=== PATIENT | female | born 1945 | race Caucasian/White ===

== ENCOUNTER 2018-01-09 14:35 | Observation (INO) | payer OTHER ==
[~2018-01-09] VITALS: Ht 157.5 cm; Wt 61.9 kg
[~2018-01-09 14:35] MED LIST: ATORVASTATIN CA10 MG PO; AZITHROMYCIN250 M1 PO; OXYCODONE5 M1 PO; PREDNICOT10 MG PO; PREDNISONE10 M2 PO; TESSALON PERLE100 MG PO; ZITHROMAX Z-PA250 M1 PO
[2018-01-09 15:19] LABS: ABSOLUTE BASOPHIL COUNT 0 /CUMM (0.0-0.2); ABSOLUTE EOSINOPHIL COUNT 0.2 /CUMM (0.0-0.7); ABSOLUTE GRANULOCYTE CT 9.3 /CUMM (1.4-6.5); ABSOLUTE LYMPH COUNT 1.3 /CUMM (1.2-3.4); ABSOLUTE MONOCYTE COUNT 0.8 /CUMM (0.10-0.60); BASOPHIL % 0.2 % (0.0-2.0); EOSINOPHIL % 1.7 % (0-5); GRANULOCYTE % 79.5 % (42.2-75.2); HEMATOCRIT 40.2 % (37-47); MEAN CORPUSCULAR HGB 29.9 PG (27.0-31.0); MEAN CORPUSCULAR HGB CONC 33.6 G/DL (33.0-37.0); MEAN PLATELET VOLUME 8.6 FL (7.4-10.4); PLATELET COUNT 273 /CUMM (130-400); RBC DISTRIBUTION WIDTH 14.2 % (11.5-14.5); RED BLOOD CELL CT 4.51 /CUMM (4.20-5.40); WHITE BLOOD CELL COUNT 11.7 /CUMM (4.8-10.8)
--- NOTE | 2018-01-09 15:41 | RADIOLOGY REPORT ---
EXAMINATION: XR CHEST CLINICAL INFORMATION: Cough. Dyspnea. Rule out pneumonia. COMPARISON: 09/27/2016 TECHNIQUE: PA and lateral views of the chest were obtained. FINDINGS: No consolidation, pneumothorax, or pleural effusion. Minimal atelectasis is present at the left lung base. Cardiac and mediastinal contours are normal. Pulmonary vasculature is unremarkable. Bones are osteopenic. There is a superior endplate compression fracture in the lower thoracic spine, likely at the level of T8. This is unchanged from prior. No new fractures. IMPRESSION: No acute pulmonary findings.
--- NOTE | 2018-01-09 16:33 | ED GENERAL ADULT ---
History of Present Illness General Chief Complaint: Upper Respiratory Sx/Fever Stated Complaint: UPPER RESP INFECTION Source: patient Exam Limitations: no limitations Vital Signs & Intake/Output Vital Signs & Intake/Output Vital Signs Date Time Temp Pulse Resp B/P B/P Pulse O2 O2 Flow FiO2 Mean Ox Delivery Rate 01/10 0529 98.1 92 20 100/60 92 Room Air 01/10 0035 97.1 93 20 100/64 93 Room Air 01/10 0015 97 Nasal 2.0L Cannula 01/09 2334 98.4 94 18 103/58 94 Nasal 2.0L Cannula 01/09 2156 98.9 100 17 113/72 93 Nasal 2.0L Cannula 01/09 2102 110 88 Room Air 01/09 2028 125 18 168/72 95 Nasal Cannula 01/09 1928 94 01/09 1856 99.3 119 18 141/81 96 Room Air 01/09 1735 100.6 01/09 1700 100.9 01/09 1641 98 01/09 1440 99.1 124 22 139/90 96 Room Air ED Intake and Output 01/10 0000 01/09 1200 Intake Total Output Total Balance Patient 137 lb Weight Weight Reported by Patient Measurement Method Allergies Coded Allergies: aspirin (Severe, ANGIODEMA 12/02/15) naproxen (From ALEVE) (Severe, ANGIODEMA 12/02/15) Triage Note: PT C/O URI STARTING YESTERDAY WITH PRODUCTIVE COUGH WITH YELLOW SPUTUM, DIFFICULTY BREATHING, DENIES CP Triage Nurses Notes Reviewed? yes Onset: Gradual Duration: day(s): Timing: constant HPI: 72-year-old female with a history of vertigo and hyperlipidemia presenting with cough productive of yellow sputum, rhinorrhea, nasal congestion, and shortness of breath since yesterday. States that she thinks she has bronchitis. Denies any fevers or chest pain. States that her has recently been sick with similar symptoms. Patient is not a smoker. Denies travel. Patient also endorsing foul smell to her urine and that the color has been dark yellow, but denies dysuria, hematuria, urinary frequency/urgency. No abdominal pain, nausea , vomiting, diarrhea. (Tosin BLANCO,Nguyen) Reconcile Medications Atorvastatin Calcium 10 MG TABLET 1 TAB PO DAILY CHOLESTEROL (Reported) Montelukast Sodium 10 MG TABLET 1 TAB PO PRN ALLERGIES (Reported) (Nav MIKE,Codey Rosas) Past History Travel History Traveled to [place] past 21 day No Medical History Any Pertinent Medical History? see below for history Neurological: vertigo Cardiovascular: hyperlipidemia Respiratory: bronchitis Surgical History Surgical History: non-contributory Psychosocial History What is your primary language Bahamian Tobacco Use: Never used ETOH Use: denies use Illicit Drug Use: denies illicit drug use Family History Hx Contributory? No (Nguyen Tavera) Review of Systems Review of Systems Constitutional: Reports: no symptoms. EENTM: Reports: see HPI. Respiratory: Reports: see HPI. Cardiovascular: Reports: no symptoms. GI: Reports: no symptoms. Genitourinary: Reports: see HPI. Musculoskeletal: Reports: no symptoms. Skin: Reports: no symptoms. Neurological/Psychological: Reports: no symptoms. Hematologic/Endocrine: Reports: no symptoms. Immunologic/Allergic: Reports: no symptoms. All Other Systems: Reviewed and Negative (Nguyen Tavera) Physical Exam Physical Exam General Appearance: well developed/nourished, no apparent distress, alert, awake , comfortable Comments: Gen.: Well-nourished, well-developed, no acute distress. Head: Normocephalic, atraumatic. Eyes: Normal inspection bilaterally Ears: Normal inspection bilaterally, TMs with good light reflex bilaterally Throat: No erythema or exudates Nose: Normal inspection, mild nasal congestion Neck: Normal inspection, no cervical lymphadenopathy Lungs: Patient has diffuse end expiratory wheezing, has no tachypnea or increased work of breathing Heart: regular rhythm, tachycardic Abdomen: soft and non-tender Extremities: Normal inspection Back: No CVA tenderness Neurologic: alert and oriented x3, steady gait Skin: warm and dry Psychiatric: Normal mood and affect, no apparent delusions or hallucinations, behavior appropriate Core Measures ACS in differential dx? No CVA/TIA Diagnosis: No Sepsis Present: No Sepsis Focused Exam Completed? No (Nguyen Tavera) Progress Differential Diagnoses I considered the following diagnoses in my evaluation of the patient: [URI versus bronchitis versus pneumonia, low concern for ACS. UTI versus pyelonephritis versus dehydration.] Plan of Care: Orders Procedure Date/time Status Regular Diet 01/10 B Active CBC WITHOUT DIFFERENTIAL 01/10 600 Active BASIC ELECTROLYTES PLUS BUN&CR 01/10 600 Active Vital Signs 01/11 48 Active Teach/Educate 01/11 48 Active Pain Treatment and Response 01/11 48 Active Nutritional Intake, Monitor 01/11 48 Active Isolation 01/11 48 Active Intake & Output 01/11 48 Active Patient Care Conference 01/11 48 Active Activity/Ambulation 01/108 Active LOWER RESPIRATORY CULTURE 01/10 2236 Active TRC EVALUATION (GEN) 01/09 2234 Active Pathway - chart 01/09 2234 Active House Staff 01/09 223 Active Patient Data 01/09 2234 Active Code Status 01/09 2234 Active Patient Data 01/[address] in observation 01/09 2130 Active ED Holding Orders 01/10 2128 Active Vital Signs 01/10 2128 Active Code Status 01/10 2128 Complete ARTERIAL BLOOD GAS (GEN) 01/09 2111 Active Add-on Test (ER Only) 01/09 2109 Active Add-on Test (ER Only) 01/10 2108 Active Add-on Test (ER Only) 01/09 203 Active Intake & Output 01/09 1639 Active CULTURE,URINE 01/09 1625 Active URINALYSIS 01/09 1625 Complete Add-on Test (ER Only) 01/09 1528 Active TSH REFLEX 01/09 1454 Complete PHOSPHORUS 01/09 1454 Complete MAGNESIUM 01/09 1454 Complete LACTIC ACID 01/09 1454 Complete TROPONIN LEVEL 01/09 1441 Complete COMPREHENSIVE METABOLIC PANEL 01/09 1441 Complete CBC WITHOUT DIFFERENTIAL 01/09 1441 Complete EKG 01/09 1441 Active VTE Mechanical Prophylaxis 01/09 UNK Active Vital Signs 01/09 UNK Complete Activity/Ambulation 01/09 UNK Active Current Medications Sig/Martina Start time Last Medication Dose Stop Time Status Admin Atorvastatin Calcium 10 MG DAILY 01/10 900 AC (Lipitor) Azithromycin 250 MG DAILY 01/10 900 AC (Zithromax) Methylprednisolone 40 MG Q12 01/10 900 AC (Solumedrol) Montelukast Sodium 10 MG DAILY 01/10 900 AC (Singulair) Heparin Sodium 5,000 UNIT Q8 01/10 06 AC (Porcine) Benzonatate 100 MG TID PRN 01/105 AC (Tessalon Capsule) Acetaminophen 650 MG Q6P PRN 01/095 AC (Tylenol) Benzocaine/Menthol 1 RAFIA Q2P PRN 01/09 224 AC (Chloraseptic Lozenges) Laboratory Tests 01/09/18 2220: pH 7.41, pCO2 39, pO2 68 L, HCO3 24, ABG O2 Sat (Measured) 93.0 L, Carboxyhemoglobin 0 L, O2 Concentration % 2L, O2 Delivery Method NC, Phlebotomy Draw Site RIGHT RADIAL 01/09/18 1640: Urine Color YEL, Urine Clarity CLEAR, Urine pH 8.0, Ur Specific [place] 1.020, Urine Protein NEG, Urine Ketones NEG, Urine Nitrite NEG, Urine Bilirubin NEG, Urine Urobilinogen 0.2, Ur Leukocyte Esterase NEG, Ur Microscopic EXAM NOT REQUIRED, Urine Hemoglobin NEG, Urine Glucose NEG 01/09/18 1454: Anion Gap 7, Estimated GFR > 60, BUN/Creatinine Ratio 16.7, Glucose 115 H, Lactic Acid 1.2, Calcium 9.2, Phosphorus 2.8, Magnesium 1.7, Total Bilirubin 0.3 , AST 25, ALT 39, Alkaline Phosphatase 128 H, Troponin I < 0.01, Total Protein 6.6, Albumin 3.9, Globulin 2.7, Albumin/Globulin Ratio 1.4, TSH &T3 &Free T4 Intrp 0.998, CBC w Diff NO MAN DIFF REQ, RBC 4.51, MCV 89.0, MCH 29.9, MCHC 33.6 , RDW 14.2, MPV 8.6, Gran % 79.5 H, Lymphocytes % 11.5 L, Monocytes % 7.1, Eosinophils % 1.7, Basophils % 0.2, Absolute Granulocytes 9.3 H, Absolute Lymphocytes 1.3, Absolute Monocytes 0.8 H, Absolute Eosinophils 0.2, Absolute Basophils 0 Microbiology 01/10 2236 LOWER RESP: Respiratory Culture - COLB 01/10 2236 LOWER RESP: Gram Stain - COLB 01/09 1640 URINE ROUT: Urine Culture - RECD EKG showed sinus tach, troponin negative Labs unremarkable Chest x-ray unremarkable Patient was given nebulizer treatments and IV steroids for her shortness of breath. Patient likely with bronchitis, but had persistent tachycardia to the 120s during her emergency department visit. She was initially febrile, but fever was controlled with Tylenol. Given IV fluid bolus to assess for tachycardia secondary to dehydration. TSH was obtained and is within normal limits. CTA of the chest was obtained to evaluate for PE or pneumonia that was missed on chest x-ray. CT of the chest was unremarkable. Patient still with persistent tachycardia to the one teens/120s. She was initially satting in the mid 90s on room air, but then began satting high 80s on room air requiring 2 L of oxygen via nasal cannula. Her O2 saturation improved to the mid 90s with supplemental oxygen. Discussed with the ED attending and patient will be admitted to telemetry for bronchitis, hypoxia, and tachycardia. Although patient's bronchitis is likely of viral etiology she was covered with ceftriaxone and azithromycin for bacterial etiology given her age. Initial ED EKG: rhythm (sinus tach) (Nguyen Tavera) Departure Departure Disposition: STILL A PATIENT Condition: Stable Clinical Impression Primary Impression: Bronchitis Secondary Impressions: Acute hypoxemic respiratory failure, Tachycardia Referrals: Aldo Kruse MD (PCP/Family) Departure Forms: Customer Survey General Discharge Information Observation Note Spoke With: Aldo Kruse MD Physician Advisor Notified: SABAS MIKE,QUIANA Rosas (case management) Place Patient In: Non-ED OBS Care Area Rationale for Observation: My rational for observation is as follows [hemodynamic monitoring, telemetry monitoring, IV antibiotics, IV fluids, antipyretics, serial EKGs and troponins, supplemental oxygen]. (Nguyen Tavera) PA/BOTTLE CASER Co-Sign Statement Statement: ED Attending supervision documentation- [x] I saw and evaluated the patient. I have also reviewed all the pertinent lab results and diagnostic results. I agree with the findings and the plan of care as documented in the PA's/BOTTLE CASER's documentation. [x] I have reviewed the ED Record and agree with the PA's/BOTTLE CASER's documentation. [] Additions or exceptions (if any) to the PAs/BOTTLE CASER's note and plan are summarized below: [PT TO BE ADMITTED FOR IV ABX, NEB TREATMENTS AND PULM CONSULTATION] (Nav MIKE,Codey Rosas) PA/BOTTLE CASER Co-Sign Statement Statement: ED Attending supervision documentation- [] I saw and evaluated the patient. I have also reviewed all the pertinent lab results and diagnostic results. I agree with the findings and the plan of care as documented in the PA's/BOTTLE CASER's documentation. [] I have reviewed the ED Record and agree with the PA's/BOTTLE CASER's documentation. [] Additions or exceptions (if any) to the PAs/BOTTLE CASER's note and plan are summarized below: [] (Misty MIKE, Grace) Critical Care Note Critical Care Note Critical Care Time: non-applicable (Tosin BLANCO,Nguyen)
--- NOTE | 2018-01-09 20:37 | CT SCAN REPORT ---
EXAMINATION: CT ANGIOGRAM CHEST, PE STUDY CLINICAL INFORMATION: Tachycardia. Shortness of breath. COMPARISON: CT chest 09/13/2011. Chest x-ray 01/09/2018 TECHNIQUE: A noncontrast localizer was performed, followed by the administration of 95 mL Optiray [address] of the chest was then performed. Coronal and sagittal reformatted and 3-D technique MIP images of the chest were completed at the CT scanner and reviewed on the PACS workstation. No adverse effects were reported. DLP: 370.65 mGy-cm. FINDINGS: VASCULAR: The main pulmonary artery, secondary and tertiary branches of the pulmonary artery are normally opacified with no evidence of pulmonary embolism. The aorta and great vessels are unremarkable. MEDIASTINUM: No mediastinal mass. No significant lymphadenopathy. There is no pericardial effusion. There is a small hiatal hernia. LUNGS: The lungs are clear. No nodule or infiltrate. Central bronchial airways open. FLUID: There is no pericardial effusion. There is no pleural effusion. AXILLA: No significant lymphadenopathy. UPPER ABDOMEN: There is low attenuation of liver parenchyma due to fatty change. The adrenal glands are normal. The visualized portions of the spleen, pancreas and kidneys are normal. SKELETAL: There is degenerative spondylosis of spine. There is central depression of the T8 vertebrae. There is about 40% loss of height of the vertebrae. IMPRESSION: No acute abnormality. No evidence of pulmonary embolism.
[2018-01-09] MEDS ORDERED: ATORVASTATIN CA10 M1 PO (21:07)
[2018-01-09] MEDS ORDERED: MONTELUKAST SOD10 M1 PO (21:08)
--- NOTE | 2018-01-09 22:16 | History & Physical ---
See Addendum Haylee Guillaume 01/09/18 9076: General Information and HPI MD Statement: I have seen and personally examined ESTEPHANIA LUDWIG and documented this H&P. The patient is a 72 year old F who presented with a patient stated chief complaint of []. Source of Information: patient Exam Limitations: no limitations History of Present Illness: 72 for year old female with PMH Vertigo, syncope, HLD, arrhythmia (unknown what kind) presenting with 2 day history of productive cough with yellow sputum, rhinnorhea, nasal congestion, and progressive SOB. She reports associated chills/sweats, dizziness, dark urine and foul odor to urine, and sore throat. She maintains that her appetite has remained intact. She states her has recently had similar symptoms. Denies chest pain, abdominal pain. Allergies/Medications Allergies: Coded Allergies: aspirin (Severe, ANGIODEMA 12/02/15) naproxen (From ALEVE) (Severe, ANGIODEMA 12/02/15) Home Med list Atorvastatin Calcium 10 MG TABLET 1 TAB PO DAILY CHOLESTEROL (Reported) Montelukast Sodium 10 MG TABLET 1 TAB PO PRN ALLERGIES (Reported) Past History Travel History Traveled to [place] past 21 day No Medical History Neurological: vertigo Cardiovascular: hyperlipidemia Respiratory: bronchitis Surgical History Surgical History: non-contributory Past Family/Social History Psychosocial History Smoking Status: Never Smoked ETOH Use: denies use Illicit Drug Use: denies illicit drug use 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 Denies: fever. EENTM: Reports: nasal congestion, throat pain. Cardiovascular: Reports: no symptoms. Respiratory: Reports: cough, short of breath, sputum production. GI: Reports: nausea. Musculoskeletal: Reports: no symptoms. Skin: Reports: no symptoms. Exam & Diagnostic Data Last 24 Hrs of Vital Signs/I&O Vital Signs Date Time Temp Pulse Resp B/P B/P Pulse O2 O2 Flow FiO2 Mean Ox Delivery Rate 01/09 2334 98.4 94 18 103/58 94 Nasal 2.0L Cannula 01/096 98.9 100 17 113/72 93 Nasal 2.0L Cannula 01/09 2102 110 88 Room Air 01/10 2028 125 18 168/72 95 Nasal Cannula 01/09 1928 94 01/09 1856 99.3 119 18 141/81 96 Room Air 01/09 1735 100.6 01/09 1700 100.9 01/09 1641 98 01/09 1440 99.1 124 22 139/90 96 Room Air Intake & Output 01/10 0800 01/10 0000 01/09 1600 Intake Total Output Total Balance Patient 137 lb Weight Weight Reported by Patient Measurement Method Physical Exam General Appearance Alert, Oriented X3, Cooperative, No Acute Distress Skin No Rashes Skin Temp/Moisture Exam: Warm/Dry HEENT Atraumatic, PERRLA, Mucous Membr. moist/pink, mild erythema posterior pharynx non tender frontal and maxillary sinuses Neck Supple Cardiovascular Normal S1, Normal S2, tachycardic Lungs Clear to Auscultation Abdomen Normal Bowel Sounds, Soft, No Tenderness Extremities No Edema, Normal Pulses Assessment/Plan Assessment: 72 for year old female with PMH Vertigo, syncope, HLD, arrhythmia (unknown what kind) presenting with 2 day history of productive cough with yellow sputum, rhinnorhea, nasal congestion, and progressive SOB. She reports associated chills/sweats, dizziness, dark urine and foul odor to urine, and sore throat. She maintains that her appetite has remained intact. She states her has recently had similar symptoms. Patient will be brought in for observation on the general medicine service for further care of the following: Problem List: 1. URI 2. Acute Bronchitis Admission Data: VS T100.9 P124 RR22 BP139/90 Sat 96%RA Labs: WBC 11.7 H/H 13.5/40.2 plt 273 Na 138 K3.9 BUN/Cr 10/0.6 Glu 115 Alk Phos 128 UA: neg nitrites; leukocyte esterase negative; bacteria none UCx pending CXR no acute findings CTA: negative for PE EKG: Sinus Tachycardia #URI-likely viral; patient's with similar sx -supportive care; symptom relief (throat lozenges) #Acute Bronchitis -Cough suppressant: Tessalon perles -Sputum cultures -Methylprednisolone 40mg Q12hr -Supplemental oxygen; taper to baseline room air -TRC/nebs -Azithromycin 5 day course DVT prophylaxis: heparin 5000units subcu/ALPS/ambulation Code Status: full code As Ranked By This Provider Problem List: 1. Bronchitis Core Measures/Misc (02/04) Acute Coronary Syndrome ACS Diagnosis: No Congestive Heart Failure Congestive Heart Failure Diagnosis No Cerebrovascular Accident CVA/TIA Diagnosis: No VTE (View Protocol) VTE Risk Factors Acute Medical Illness No Mechanical VTE Prophylaxis d/t N/A MechProphylax Ordered No VTE Pharm Prophylaxis d/t NA PharmProphylax ordered Sepsis (View protocol) Sepsis Present: No If YES complete Sepsis Event Note If YES complete Sepsis Event Note Bryant Valerio 01/09/18 5552: Core Measures/Misc (02/04) Sepsis (View protocol) If YES complete Sepsis Event Note If YES complete Sepsis Event Note Resident Review Statement Resident Statement: examined this patient, discussed with rn internal medicine, agreed with rn internal medicine, discussed with family, reviewed EMR data (avail), discussed with nursing , discussed with case mgmt, reviewed images, amended to note Other Findings: This is a 72-year-old female with past medical history significant for hyperlipidemia, vertigo presented to the hospital for evaluation of shortness of breath since yesterday. Patient reports sudden onset of shortness of breath associated with runny nose and nasal congestion. She also reports sputum production and cough. Reports subjective fever and chills. She denies any travel history. She reports exposure to sick contacts at home who has upper respiratory tract infection. She never smoked in her life. She has no COPD or asthma. On review of systems she reports yelow colored urine. Denied any chest pain, palpitations, nausea, vomiting, abdominal pain, change in bladder or bowel habits. Denied smoking, alcohol abuse, illicit drug abuse. Vitals T-max 100.9, heart rate 110, respiratory 22, blood pressure 139/90, saturating at 96 on room air Labs WBC 11.7, hemoglobin 13, hematocrit 40, Platelets 273 BEP normal limit Urine analysis within normal limits EKG showed sinus tach 115, no acute ST-T wave changes CTA was done, negative for pulmonary embolism Chest x-ray no acute cardiopulmonary findings 1. Acute hypoxic respiratory failure secondary to bronchitis Patient presented with worsening shortness of breath with minimal exertion associated with productive cough, runny nose, nasal congestion. Reports fever, chills. She has leukocytosis 11.7 and T-max 100.9. Chest x-ray no acute cardiopulmonary findings, no pneumonia was found. * Admitted to [facility] * Acute hypoxic respiratory failure most likely secondary to bronchitis/sick contact exposure * Monitor vitals every shift * Maintain oxygen saturation greater than 90% * Provide oxygen supplementation * IV methylprednisolone 40 every 8 hours * Azithromycin 250 daily for 5 days * incentive spirometry * TRC * DUO nebs SIRS criteria She has T-max 100.9 with the tachycardia 110, leukocytosis 11.7. Urine looks clear. Chest x-ray showed no findings suggestive of pneumonia. No source of infection was found. Abdominal exam was benign * Follow-up sputum cultures * Follow-up urine cultures * Please trend WBC * Follow-up for fever Hyperlipidemia continue Lipitor 10 daily Full code Regular diet DVT prophylaxis subcu heparin Pain pathway ordered Discussed with Dr. Kruse over phone.. Aldo Kruse MD 01/10/18 1022: Core Measures/Misc (02/04) Sepsis (View protocol) If YES complete Sepsis Event Note If YES complete Sepsis Event Note
[2018-01-10 00:35] VITALS: BP 100/64
[2018-01-10 05:29] VITALS: BP 100/60
--- NOTE | 2018-01-10 06:47 | PN- Housestaff ---
Subjective Follow-up For: URI Acute Bronchitis Subjective: I saw the patient and examined her this morning, she was alert and oriented 3 lying back in her bed. She was in no acute distress and she feels better this morning comparing to the time she was admitted in ED. No major complaints reported by the patient or nurse. Review of Systems Constitutional: Reports: see HPI. Objective Last 24 Hrs of Vital Signs/I&O Vital Signs Date Time Temp Pulse Resp B/P B/P Pulse O2 O2 Flow FiO2 Mean Ox Delivery Rate 01/10 0529 98.1 92 20 100/60 92 Room Air 01/10 0035 97.1 93 20 100/64 93 Room Air 01/10 0015 97 Nasal 2.0L Cannula 01/09 2334 98.4 94 18 103/58 94 Nasal 2.0L Cannula 01/09 2156 98.9 100 17 113/72 93 Nasal 2.0L Cannula 01/09 2102 110 88 Room Air 01/09 2028 125 18 168/72 95 Nasal Cannula 01/09 1928 94 01/09 1856 99.3 119 18 141/81 96 Room Air 01/09 1735 100.6 01/09 1700 100.9 01/09 1641 98 01/09 1440 99.1 124 22 139/90 96 Room Air Intake & Output 01/10 1600 01/10 0800 01/10 0000 Intake Total 490 Output Total Balance 490 Intake, IV 10 Intake, Oral 480 Patient 137 lb Weight Physical Exam General Appearance: Alert, Oriented X3, Cooperative Skin: No Rashes Skin Temp/Moisture Exam: Warm/Dry HEENT: Atraumatic Vascular: Normal Pulses, Pulses Symmetrical Assessment/Plan Assessment: 72 for year old female with PMH Vertigo, syncope, HLD, arrhythmia (unknown what kind) presenting with 2 day history of productive cough with yellow sputum, rhinnorhea, nasal congestion, and progressive SOB. She reports associated chills/sweats, dizziness, dark urine and foul odor to urine, and sore throat. She maintains that her appetite has remained intact. She states her has recently had similar symptoms. URI: likely viral; patient's with similar symptoms. Plan: supportive care; symptom relief (throat lozenges), we will follow current treatments. Acute Bronchitis: We will continue the current treatments as per Dr. Kruse notes. Plan: Cough suppressant, Sputum cultures, Methylprednisolone 40mg Q12hr, Supplemental oxygen; taper to baseline room air, TRC/nebs, Azithromycin 5 day course, I will follow the current treatment. DVT prophylaxis: heparin 5000units subcu/ALPS/ambulation Code Status: full code Problem List: 1. Acute hypoxemic respiratory failure 2. Bronchitis Pain Ratin Pain Location: NA Pain Goal: Remain pain free Pain Plan: NA Tomorrow's Labs & Rationales: NA
[2018-01-10 10:04] LABS: ABSOLUTE BASOPHIL COUNT 0 /CUMM (0.0-0.2); ABSOLUTE EOSINOPHIL COUNT 0 /CUMM (0.0-0.7); ABSOLUTE GRANULOCYTE CT 10.8 /CUMM (1.4-6.5); ABSOLUTE LYMPH COUNT 0.7 /CUMM (1.2-3.4); ABSOLUTE MONOCYTE COUNT 0.3 /CUMM (0.10-0.60); BASOPHIL % 0 % (0.0-2.0); EOSINOPHIL % 0 % (0-5); HEMATOCRIT 39.4 % (37-47); MEAN CORPUSCULAR HGB 29.6 PG (27.0-31.0); MEAN CORPUSCULAR HGB CONC 33.1 G/DL (33.0-37.0); MEAN CORPUSCULAR VOLUME 89.3 FL (81.0-99.0); MEAN PLATELET VOLUME 8.8 FL (7.4-10.4); PLATELET COUNT 285 /CUMM (130-400); RBC DISTRIBUTION WIDTH 14.6 % (11.5-14.5); RED BLOOD CELL CT 4.41 /CUMM (4.20-5.40); WHITE BLOOD CELL COUNT 11.8 /CUMM (4.8-10.8)
--- NOTE | 2018-01-10 10:24 | PN- Att Addend ---
Attending Addendum Attending Brief Note 72-year-old female fairly active. Her had been sick with upper respiratory symptoms. She suddenly started having problems with cough yellow sputum wheezing and some shortness of breath and a little tachycardic. She comes to the emergency room. Originally no major response to routine treatment for those reasons she was kept for observation and was given IV steroids and oxygen and antibiotics. This morning patient feels better she still wheezing. Will continue observation during the day continued IV steroids TRC oxygen try to taper oxygen down. 24 TOTALS 01/10 0000 01/09 0000 Intake Total Output Total Balance Patient 137 lb Weight Weight Reported by Patient Measurement Method Current Medications Sig/Martina Start time Last Medication Dose Route Stop Time Status Admin Acetaminophen 650 MG Q6P PRN 01/09 224 AC PO Acetaminophen 0 .STK-MED ONE 01/09 1730 DC PO Acetaminophen 650 MG ONCE ONE 01/09 1715 DC 01/09 PO 01/09 171 1735 Albuterol Sulfate 3 ML ONCE ONE 01/09 1630 DC 01/09 INH 01/09 163 1641 Albuterol Sulfate 3 ML ONCE ONE 01/09 1630 DC 01/09 INH 01/09 1631 1927 Atorvastatin Calcium 10 MG DAILY 01/10 0900 AC 01/10 PO 0816 Azithromycin 250 MG DAILY 01/10 09 AC 01/10 PO 0817 Azithromycin 500 MG ONCE ONE 01/09 1915 DC 01/09 Sodium Chloride 250 ML IV 01/09 2014 192 Benzocaine/Menthol 1 RAFIA Q2P PRN 01/09 2245 AC PO Benzonatate 100 MG TID PRN 01/10 0045 AC PO Ceftriaxone Sodium 0 .STK-MED ONE 01/09 2121 DC .ROUTE Ceftriaxone Sodium 1,000 MG ONCE ONE 01/09 2115 DC 01/09 IV 01/09 Diphenhydramine HCl 50 MG ONCE ONE 01/09 2045 DC 01/09 IV 01/09 Heparin Sodium 5,000 UNIT Q8 01/10 06 AC (Porcine) SC Ipratropium [place] 2.5 ML ONCE ONE 01/09 1630 DC 01/09 INH 01/09 1631 1641 Methylprednisolone 40 MG Q12 01/10 0900 AC 01/10 IV 0817 Methylprednisolone 0 .STK-MED ONE 01/09 1921 DC .ROUTE Methylprednisolone 125 MG ONCE ONE 01/09 1915 DC 01/09 IV 01/09 191 1926 Montelukast Sodium 10 MG DAILY 01/10 0900 AC 01/10 PO 0816 Ondansetron HCl 4 MG ONCE ONE 01/09 2015 DC 01/09 IV 01/09 Sodium Chloride 500 ML BOLUS ONE 01/09 2045 DC 01/09 IV 01/10 2144 203 Sodium Chloride 500 ML BOLUS ONE 01/09 1730 DC 01/09 IV 01/09 1829 1735 Laboratory Tests 01/10/18 0911: Anion Gap 7, Estimated GFR > 60, BUN/Creatinine Ratio 25.0, CBC w Diff Pending, WBC Pending, RBC Pending, Hgb Pending, Hct Pending, MCV Pending, MCH Pending, MCHC Pending, RDW Pending, Plt Count Pending, MPV Pending 01/09/18 2220: pH 7.41, pCO2 39, pO2 68 L, HCO3 24, ABG O2 Sat (Measured) 93.0 L, Carboxyhemoglobin 0 L, O2 Concentration % 2L, O2 Delivery Method NC, Phlebotomy Draw Site RIGHT RADIAL 01/09/18 1640: Urine Color YEL, Urine Clarity CLEAR, Urine pH 8.0, Ur Specific [place] 1.020, Urine Protein NEG, Urine Ketones NEG, Urine Nitrite NEG, Urine Bilirubin NEG, Urine Urobilinogen 0.2, Ur Leukocyte Esterase NEG, Ur Microscopic EXAM NOT REQUIRED, Urine Hemoglobin NEG, Urine Glucose NEG 01/09/18 1454: Anion Gap 7, Estimated GFR > 60, BUN/Creatinine Ratio 16.7, Glucose 115 H, Lactic Acid 1.2, Calcium 9.2, Phosphorus 2.8, Magnesium 1.7, Total Bilirubin 0.3 , AST 25, ALT 39, Alkaline Phosphatase 128 H, Troponin I < 0.01, Total Protein 6.6, Albumin 3.9, Globulin 2.7, Albumin/Globulin Ratio 1.4, TSH &T3 &Free T4 Intrp 0.998, CBC w Diff NO MAN DIFF REQ, RBC 4.51, MCV 89.0, MCH 29.9, MCHC 33.6 , RDW 14.2, MPV 8.6, Gran % 79.5 H, Lymphocytes % 11.5 L, Monocytes % 7.1, Eosinophils % 1.7, Basophils % 0.2, Absolute Granulocytes 9.3 H, Absolute Lymphocytes 1.3, Absolute Monocytes 0.8 H, Absolute Eosinophils 0.2, Absolute Basophils 0 Vital Signs Date Time Temp Pulse Resp B/P B/P Pulse O2 O2 Flow FiO2 Mean Ox Delivery Rate 01/10 0529 98.1 92 20 100/60 92 Room Air 01/10 0035 97.1 93 20 100/64 93 Room Air 01/10 0015 97 Nasal 2.0L Cannula 01/09 2334 98.4 94 18 103/58 94 Nasal 2.0L Cannula 01/09 2156 98.9 100 17 113/72 93 Nasal 2.0L Cannula 01/09 2102 110 88 Room Air 01/09 2028 125 18 168/72 95 Nasal Cannula 01/09 1928 94 01/09 1856 99.3 119 18 141/81 96 Room Air 01/09 1735 100.6 01/09 1700 100.9 01/09 1641 98 01/09 1440 99.1 124 22 139/90 96 Room Air
[2018-01-10 11:32] LABS: GRANULOCYTE % 91.6 % (42.2-75.2)
[2018-01-10 13:57] VITALS: BP 140/78
[2018-01-10 22:00] VITALS: BP 140/78
[2018-01-11 06:28] VITALS: BP 110/72
--- NOTE | 2018-01-11 07:04 | PN- Housestaff ---
Subjective Follow-up For: URI Acute bronchitis Subjective: Pt was seen lying in bed in [facility]. She reports a goos sleep, & a mild cough. She has been walking around the corridor without any discomfort/SOB/CP. Says she wants to go home today. Review of Systems Constitutional: Reports: no symptoms. EENTM: Reports: no symptoms. Cardiovascular: Reports: no symptoms. Respiratory: Reports: no symptoms. Gastrointestinal: Reports: no symptoms. Genitourinary: Reports: no symptoms. Musculoskeletal: Reports: no symptoms. Skin: Reports: no symptoms. Neurological/Psychological: Reports: no symptoms. Hematologic/Endocrine: Reports: no symptoms. Immunologic/Allergic: Reports: no symptoms. Objective Last 24 Hrs of Vital Signs/I&O Vital Signs Date Time Temp Pulse Resp B/P B/P Pulse O2 O2 Flow FiO2 Mean Ox Delivery Rate 01/11 1447 98.0 91 20 108/72 93 Room Air 01/11 1413 93 Room Air Room Air 01/11 0800 93 Nasal 2.0L Cannula 01/11 0628 98.3 83 20 110/72 92 Nasal 2.0L Cannula 01/11 0000 Nasal 2.0L Cannula Intake & Output 01/11 1600 01/11 0800 01/11 0000 Intake Total 735 360 600 Output Total Balance 735 360 600 Intake, IV 15 Intake, Oral 720 360 600 Physical Exam General Appearance: Alert, Oriented X3, Cooperative, No Acute Distress Skin: No Rashes, No Breakdown, No Significant Lesion Skin Temp/Moisture Exam: Cool/Dry Sepsis Skin Exam (color): Normal for Ethnicity HEENT: Atraumatic, Mucous Membr. moist/pink Neck: Supple Cardiovascular: Regular Rate, Normal S1, Normal S2, No Murmurs Lungs: Clear to Auscultation, Normal Air Movement Abdomen: Normal Bowel Sounds, Soft, No Tenderness, No Hepatospenomegaly, No Masses Neurological: Normal Gait, Normal Speech Assessment/Plan Assessment: 72 for year old female with PMH Vertigo, syncope, HLD, arrhythmia (unknown what kind) presenting with 2 day history of productive cough with yellow sputum, rhinnorhea, nasal congestion, and progressive SOB. She reports associated chills/sweats, dizziness, dark urine and foul odor to urine, and sore throat. She maintains that her appetite has remained intact. She states her has recently had similar symptoms. Plan is to d.c today. URI: likely viral; patient's with similar symptoms. Plan: supportive care; symptom relief (throat lozenges). She is not requiring O2 now Acute Bronchitis: resolved. Plan: Complete 5 days of azithro DVT prophylaxis: heparin 5000units subcu/ALPS/ambulation Code Status: full code Problem List: 1. Bronchitis Pain Ratin Pain Location: none Pain Goal: Remain pain free Pain Plan: n.a Tomorrow's Labs & Rationales: not req
--- NOTE | 2018-01-11 11:10 | Patient Discharge Instructions ---
Discharge Instructions General Discharge Information You were seen/treated for: Bronchitis leading to acute hypoxic respiratory failure You had these procedures: None Acute Coronary Syndrome Inclusion Criteria At DC or during hospital stay patient has or had the following: ACS DIAGNOSIS No Discharge Core Measures Meds if any: Prescribed or Continued at Discharge Meds if any: NOT Prescribed or Continued at Discharge Congestive Heart Failure Inclusion Criteria At DC or during hospital stay patient has or had the following: CHF DIAGNOSIS No Discharge Core Measures Meds if any: Prescribed or Continued at Discharge Meds if any: NOT Prescribed or Continued at Discharge Cerebrovascular accident Inclusion Criteria At DC or during hospital stay patient has or had the following: CVA/TIA Diagnosis No Discharge Core Measures Meds if any: Prescribed or Continued at Discharge Meds if any: NOT Prescribed or Continued at Discharge Venous thromboembolism Inclusion Criteria VTE Diagnosis No VTE Type NONE VTE Confirmed by (Test) NONE Discharge Core Measures - Per Current guidelines, there needs to be overlap - treatment for the first 5 days of Warfarin therapy. - If discharged on Warfarin prior to 5 days of - overlap therapy, the patient will need to be - assessed for post discharge needs including - *Post discharge parental anticoagulation - *Warfarin and/or parental anticoagulation education - *Follow up date to check INR post discharge At least 5 days overlap therapy as Inpatient No Meds if any: Prescribed or Continued at Discharge Note: Overlap Therapy is Warfarin and Anticoagulant Meds if any: NOT Prescribed or Continued at Discharge
--- NOTE | 2018-01-11 11:14 | PN- Att Addend ---
Attending Addendum Attending Brief Note Patient is better today. Breathing better. Patient's O2 saturations are adequate on room air and even with ambulation. Her vital signs are stable no fever. Better air ideation. Patient discussed with house officers and will discharge today will switch to p.o. antibiotics will taper the steroids. Will follow patient in the office next week. 24 TOTALS 01/11 0000 01/10 0000 Intake Total 1825 Output Total Balance 1825 Intake, IV 25 Intake, Oral 1800 Number 0 Bowel Movements Patient 137 lb 137 lb Weight Weight Reported by Patient Measurement Method Current Medications Sig/Martina Start time Last Medication Dose Route Stop Time Status Admin Acetaminophen 650 MG Q6P PRN 01/09 2245 AC PO Albuterol Sulfate 3 ML Q4P PRN 01/10 1330 AC INH Atorvastatin Calcium 10 MG DAILY 01/10 09 AC 01/11 PO 0820 Azithromycin 250 MG DAILY 01/10 0900 AC 01/11 PO 0820 Benzocaine/Menthol 1 RAFIA Q2P PRN 01/09 2245 AC PO Benzonatate 100 MG TID PRN 01/10 0045 AC PO Heparin Sodium 5,000 UNIT Q8 01/10 0600 AC (Porcine) SC Methylprednisolone 40 MG Q12 01/10 09 DC 01/11 IV 0820 Montelukast Sodium 10 MG DAILY 01/10 09 AC 01/11 PO 0820 Patient Medication 1 ED ONE ONE 01/10 1815 [place] 01/10 Teaching ED 01/10 Laboratory Tests 01/10/18 0911: Anion Gap 7, Estimated GFR > 60, BUN/Creatinine Ratio 25.0, CBC w Diff NO MAN DIFF REQ, RBC 4.41, MCV 89.3, MCH 29.6, MCHC 33.1, RDW 14.6 H, MPV 8.8, Gran % 91.6 H, Lymphocytes % 6.1 L, Monocytes % 2.3, Eosinophils % 0, Basophils % 0, Absolute Granulocytes 10.8 H, Absolute Lymphocytes 0.7 L, Absolute Monocytes 0.3, Absolute Eosinophils 0, Absolute Basophils 0 01/09/18 2220: pH 7.41, pCO2 39, pO2 68 L, HCO3 24, ABG O2 Sat (Measured) 93.0 L, Carboxyhemoglobin 0 L, O2 Concentration % 2L, O2 Delivery Method NC, Phlebotomy Draw Site RIGHT RADIAL 01/09/18 1640: Urine Color YEL, Urine Clarity CLEAR, Urine pH 8.0, Ur Specific [place] 1.020, Urine Protein NEG, Urine Ketones NEG, Urine Nitrite NEG, Urine Bilirubin NEG, Urine Urobilinogen 0.2, Ur Leukocyte Esterase NEG, Ur Microscopic EXAM NOT REQUIRED, Urine Hemoglobin NEG, Urine Glucose NEG 01/09/18 1454: Anion Gap 7, Estimated GFR > 60, BUN/Creatinine Ratio 16.7, Glucose 115 H, Lactic Acid 1.2, Calcium 9.2, Phosphorus 2.8, Magnesium 1.7, Total Bilirubin 0.3 , AST 25, ALT 39, Alkaline Phosphatase 128 H, Troponin I < 0.01, Total Protein 6.6, Albumin 3.9, Globulin 2.7, Albumin/Globulin Ratio 1.4, TSH &T3 &Free T4 Intrp 0.998, CBC w Diff NO MAN DIFF REQ, RBC 4.51, MCV 89.0, MCH 29.9, MCHC 33.6 , RDW 14.2, MPV 8.6, Gran % 79.5 H, Lymphocytes % 11.5 L, Monocytes % 7.1, Eosinophils % 1.7, Basophils % 0.2, Absolute Granulocytes 9.3 H, Absolute Lymphocytes 1.3, Absolute Monocytes 0.8 H, Absolute Eosinophils 0.2, Absolute Basophils 0 Microbiology 01/10 1900 URINE ROUT: Legionella Antigen - COMP 01/10 1900 URINE ROUT: Streptococcus pneumoniae Antigen (M - COMP Vital Signs Date Time Temp Pulse Resp B/P B/P Pulse O2 O2 Flow FiO2 Mean Ox Delivery Rate 01/11 0628 98.3 83 20 110/72 92 Nasal 2.0L Cannula 01/11 0000 Nasal 2.0L Cannula 01/10 2200 98.0 91 16 140/78 94 Nasal 2.0L Cannula 01/10 2043 95 Nasal 2.0L Cannula 01/10 1600 Nasal 2.0L Cannula 01/10 1357 98.4 100 20 140/78 95 Nasal 2.0L Cannula 01/10 1311 Nasal 2.0L Cannula 01/10 1310 95 Nasal 2.0L Cannula
[2018-01-11] MEDS ORDERED: MUCINEX1200 M1 PO ×2 (14:18→14:23)
[2018-01-11] MEDS ORDERED: BENZONATATE100 M1 PO ×2 (14:18→14:23)
[2018-01-11] MEDS ORDERED: AZITHROMYCIN250 M1 PO ×2 (14:18→14:23)
[2018-01-11] MEDS ORDERED: PREDNISONE10 M2 OD ×2 (14:18→14:23)
[2018-01-11] MEDS ORDERED: SPIRIVA18 MCG INH ×2 (14:18→14:23)
[2018-01-11 14:47] VITALS: BP 108/72
[2018-01-11] MEDS ORDERED: PREDNISONE10 M2 PO (15:25)
== END 2018-01-11 15:45 ==
LOC: ERH 14:35 → 2NA 21:30 → ERHI 21:30 → ENRESERV 23:01 → 2NA 01-10 00:11 → ENPENDDIS 01-11 14:30 → ENTRNSPT 01-11 15:32 → EDTRNSPTSTS 01-11 15:35 → EDTRNSPT 01-11 15:35 → 2NA 01-11 15:45 → CMPTRNSPT 01-11 15:48
PROVIDERS: Hospitalist; Physician Assistant
DX: J20.9 Acute bronchitis, unspecified (principal); J06.9 Acute upper respiratory infection, unspecified; R55 Syncope and collapse; E78.5 Hyperlipidemia, unspecified; R06.02 Shortness of breath; I49.9 Cardiac arrhythmia, unspecified
CPT/HCPCS: 1263; 36592; 71046; 81003; 82436; 87070; 87086; 87449; 87450; 93005; 93010; 96374; 96375; G0378; J0456; J0696; J1644; J2920; J2930; J7040